=== PATIENT | female | born 2000 ===

== ENCOUNTER 2024-04-23 20:42 | Emergency (ER) | payer BC ==
[2024-04-23] MEDS: Ketorolac 30 MG/ML SDV IM ONE (22:06)
[2024-04-23] MEDS: Acetaminophen 500 MG Tab PO ONE (22:12)
== END 2024-04-24 00:06 | disposition home or self-care (01) ==
LOC: MW.ED 20:42
DX: S83.91XA Sprain of unspecified site of right knee, initial encounter (principal); W10.9XXA Fall (on) (from) unspecified stairs and steps, initial encounter
CPT/HCPCS: 73562; 99283; A9270